=== PATIENT | female | born 2000 | race Caucasian/White ===

== ENCOUNTER 2023-08-26 12:16 | Inpatient (IN) ==
[2023-08-26] MEDS ORDERED: LIDOCAINE 1% LOCAL 20 ML VIAL INFIL PRN (13:19)
[2023-08-26] MEDS ORDERED: OXYTOCIN 30 UNITS/NSS 30 UNITS/500 ML BAG IV PRN (13:19)
--- NOTE | 2023-08-26 13:48 | History & Physical Report ---
Date of Service August 26, 2023 Assessment & Plan (1) Supervision of normal in third trimester: (2) Anemia affecting : Plan Pt is a 22 yo at 39 6/7 WGA presenting to labor and delivery for labor. External FHT and external uterine monitors used; Category I tracing; moderate FHT variability. Blood type; O+, GBS negative, rubella immune Expectant management at this time, may start oxytocin and rupture membranes later if necessary. Proceed with labor and plan for vaginal delivery. History of Present Illness Chief Complaint: Labor Primary Care Provider: JOCELYNE Echeverria Pt is a 22 y/o female currently at 39 6/7 WGA with an JOLLY of 08/27/2023 as determined by ultrasound who is here for labor. Her was complicated by anemia requiring iron infusions. + contractions; + movement; - fluid loss; - bloody show. Pt states that she came in since she started having more frequent and painful contractions starting at about 5:30 am this morning. Expecting a baby boy and excited. No questions or concerns at this time. Had regular appointments with OB. OB Labs: Blood Type O Positive 01/18/23 Antibody Screen NEGATIVE 01/18/23 Hemoglobin 11.0 g/dl (12.0-16.0) L 08/19/23 Hematocrit 33.9 % (37.0-47.0) L 08/19/23 Mean Corpuscular Volume 82.5 fL (80.0-100.0) 08/19/23 Platelet Count 239 K/uL (130-400) 08/19/23 Rubella IgG Antibody Immune (Immune) 01/18/23 Rapid Plasma Reagin Nonreactive (Nonreactive) 01/18/23 Hepatitis B Surface Antigen. NON-REACTIVE (NON-REACTIVE) 01/18/23 Hepatitis C Antibody (EIA) NON-REACTIVE (NON-REACTIVE) 01/18/23 HIV (1&2) Ag and Ab Confirmation NON-REACTIVE (NON-REACTIVE) 01/18/23 Glucose 1 Hour 50 gm Load 81 mg/dl (70-130) 06/14/23 OB Optional Labs: Chlamydia trachomatis RNA Not Detected (NotDetected) 01/18/23 Neisseria gonorrhoeae RNA Not Detected (NotDetected) 01/18/23 Thyroid Stimulating Hormone (TSH) 1.942 uIu/ml (0.300-4.500) 10/27/22 Labs Reviewed: declines genetics/horizon/qs.--akh declines msafp--smp Allergies Allergy/AdvReac Type Severity Reaction Status Date / Time No Known Drug Allergies Allergy Verified 08/25/23 11:24 Home Medications Medication Instructions Recorded Confirmed Type vits no.124-ferrous fum 1 tab PO DAILY 08/26/23 08/26/23 History 27 mg iron-folic acid 800 mcg tablet ( Vitamin) Patient History Medical History Anemia Seasonal allergies Prior miscarriage with , antepartum Missed ab Varicella vaccination Period disorder Need for prophylactic antibiotic Need for malaria prophylaxis Need for immunization against typhoid Exercise counseling Dietary counseling Counseling for travel Acne Surgical History History of tonsillectomy and adenoidectomy S/P tonsillectomy and adenoidectomy S/p bilateral myringotomy with tube placement Family History Father Irritable bowel Barretts esophagus Family/Other Muscular dystrophy cousin x2 Other Breast cancer Skin cancer Denies family history of Ovarian cancer Prostate cancer Diabetes Myocardial infarction Lung cancer Colorectal cancer Social History (Updated 01/12/23 @ 14:17 by Lety Meza) Smoking Status: Former smoker Tobacco Type: E-cigarettes / Vaping Age Started Using Tobacco: 18; Age Quit Using Tobacco: 20; Second Hand Exposure: No; Do You Dip or Chew Tobacco: No; Tobacco Cessation Education Requested by Patient: No Hx Alcohol Use: No Hx Substance Use: No Preferred Language: Portuguese Communication Ability: Effective Visual Impairment: Limited Hearing Ability: Normal V/Stol Landing Signal Officer Required: No marital status: marital status details: Wilian Urrutia (29) [phone] Current Living Situation: Spouse Current Living Situation Comment: lives with and 7 year old current occupational status: employed 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 Date GA wks Lbr Lgth wt Sex Type del Anes Place Del Prov ? Comment 01/29/22 8 Aborted-Spontaneous cytotec Review of Systems no fever, no chills and no sweats no dyspnea no difficulty breathing no chest pain and no palpitations no dysuria no headache(s) no changes in vision no breast pain Physical Exam Physical Exam: General: Alert, oriented. No acute distress. Cardiac: Regular rate and rhythm, no murmurs, gallops, or rubs. Respiratory: Clear to auscultation bilaterally a/p, no wheezes, rales, or rhonchi. No increased work of breathing. No respiratory distress. Abdomen: Gravid, Position: vertex Pelvic: Dilation 3.5 cm, Effacement 90%, Station -[address] Elizalde. Lower extremities: No lower extremity edema or swelling. No deep calf pain. Juan Ramon's negative bilaterally. Results & Data Vital Signs (Past 12 Hours) Vital Signs Temp Pulse Resp BP 08/26/23 13:00 16 08/26/23 13:00 16 08/26/23 12:39 97 H 122/72 08/26/23 12:35 36.9 C 18 Supervising Physician Co-Signing Physician Notes Resident Physician Supervision Note: I was present with Dr. Garner during the history and exam. I discussed the case with the resident and agree with the findings and plan as documented in the note. Any exceptions or clarifications are listed here: [None] Documented By: Edvin Elizalde MD, FACOG Resident Activity Tracking Resident Involvement: Resident Care Provided Care Provided: OB Delivery
[2023-08-26 14:30] LABS: Hematocrit (blood only) 35.7 % (37.0-47.0); Hemoglobin 11.5 g/dl (12.0-16.0); Mean Corpuscular Hemoglobin 26.8 pg (25.0-34.0); Mean Corpuscular Hgb Conc 32.2 g/dL (32.0-36.0); Mean Corpuscular Volume 83.2 fL (80.0-100.0); Platelet Count 246 K/uL (130-400); RDW Coefficient of Variation 18.5 % (11.5-14.5); RDW Standard Deviation 54.5 fL (36.4-46.3); Red Blood Count 4.29 M/uL (4.20-5.40); White Blood Count 9.93 K/ul (4.8-10.8)
[2023-08-26] MEDS: LACTATED RINGER'S 1,000 ML IV PRN ×2 (17:49→19:14)
[2023-08-26] MEDS ORDERED: SODIUM CHLORIDE 0.9% PF INJ 10 ML VIAL ONE (18:40)
[2023-08-26] MEDS ORDERED: ePHEDrine sulfate 50 MG/ML AMP ONE (18:40)
[2023-08-26] MEDS ORDERED: BUPIVACAINE 0.25% PF 30 ML VIAL ONE (18:40)
[2023-08-26] MEDS ORDERED: LIDOCAINE 2%/EPINEPHRINE 1:200,000 20 ML PF ONE (18:40)
[2023-08-26] MEDS ORDERED: fentANYL 2 MCG/ML BUPIVacaine 0.125%-NSS 100ML BAG ONE (18:40)
[2023-08-26] MEDS ORDERED: fentaNYL citrate PF 100 MCG/2 ML VIAL ONE (18:40)
--- NOTE | 2023-08-26 18:50 | Anesthesiology Consultation ---
Date of Service August 26, 2023 Assessment & Plan (1) Encounter for pre-operative examination: Chart Review Chart Review: Patient NOT seen in Pre Admission Testing and Acceptable Risk for Labor Epidural Consults Requested none History Height/Weight Height: 5 ft 4 in Weight: 69.4 kg Allergies Allergy/AdvReac Type Severity Reaction Status Date / Time No Known Drug Allergies Allergy Verified 08/25/23 11:24 Medications Home Medications Medication Instructions Recorded Confirmed Last Taken vits no.124-ferrous fum 1 tab PO DAILY 08/26/23 08/26/23 08/25/23 27 mg iron-folic acid 800 mcg 0800 tablet ( Vitamin) Active Medications Generic Name Dose Route Start Last Admin Trade Name Freq PRN Reason Stop Dose Admin Lactated Ringer's 1,000 mls @ 125 mls/hr 08/26/23 13:19 08/26/23 18:21 Lr IV 08/28/23 13:18 125 mls/hr .Q8H PRN Infusion L&D Protocol Protocol Past Medical History Medical History Anemia Seasonal allergies Prior miscarriage with , antepartum Missed ab Varicella vaccination Period disorder Need for prophylactic antibiotic Need for malaria prophylaxis Need for immunization against typhoid Exercise counseling Dietary counseling Counseling for travel Acne Past Family History Family History Father Irritable bowel Barretts esophagus Family/Other Muscular dystrophy cousin x2 Other Breast cancer Skin cancer Denies family history of Ovarian cancer Prostate cancer Diabetes Myocardial infarction Lung cancer Colorectal cancer Past Surgical History Surgical History History of tonsillectomy and adenoidectomy S/P tonsillectomy and adenoidectomy S/p bilateral myringotomy with tube placement Social History Smoking Status: Former smoker Do You Dip or Chew Tobacco: No Hx Alcohol Use: No Hx Substance Use: No substance use type: does not use Physical Exam Vital Signs Last Vital Signs Temp 98.2 F 08/26/23 15:30 Pulse 95 H 08/26/23 18:16 Resp 18 08/26/23 17:30 BP 139/74 08/26/23 18:16 Testing Laboratory Results 08/26/23 14:02
[2023-08-26] MEDS ORDERED: SODIUM CHLORIDE 0.9% PF INJ 10 ML VIAL EPI STA (18:51)
[2023-08-26] MEDS ORDERED: ePHEDrine sulfate 50 MG/ML AMP IV PRN (18:51)
[2023-08-26] MEDS ORDERED: BUPIVACAINE 0.25% PF 30 ML VIAL EPI PRN (18:51)
[2023-08-26] MEDS ORDERED: diphenhydrAMINE 50 MG/ML VIAL IV PRN (18:51)
[2023-08-26] MEDS ORDERED: LIDOCAINE 2%/EPINEPHRINE 1:200,000 20 ML PF EPI STA (18:51)
[2023-08-26] MEDS ORDERED: ROPIVACAINE 0.5% PF 5 MG/ML 20 ML VIAL EPI PRN (18:51)
[2023-08-26] MEDS ORDERED: LIDOCAINE 2% MPF LOCAL 5 ML VIAL EPI PRN (18:51)
[2023-08-26] MEDS ORDERED: NALOXONE HCL 0.4 MG/1 ML VIAL/CARP IV PRN (18:51)
[2023-08-26] MEDS ORDERED: fentaNYL citrate PF 100 MCG/2 ML VIAL EPI PRN (18:51)
[2023-08-26] MEDS ORDERED: NALOXONE HCL 1 MG in SODIUM CHLORIDE 0.9% 1,000 ML IV PRN (18:51)
[2023-08-26] MEDS ORDERED: fentaNYL citrate PF 100 MCG/2 ML VIAL EPI STA (18:51)
[2023-08-26] MEDS ORDERED: NALBUPHINE HCL 5 MG in SYRINGE 0 ML IV PRN (18:51)
[2023-08-26] MEDS ORDERED: SODIUM CHLORIDE 0.9% PF INJ 10 ML VIAL EPI PRN (18:51)
[2023-08-26] MEDS ORDERED: BUPIVACAINE 0.25% PF 30 ML VIAL EPI STA (18:51)
[2023-08-26] MEDS: fentANYL 2 MCG/ML BUPIVacaine 0.125%-NSS 100ML BAG EPI PRN (19:15)
--- NOTE | 2023-08-26 19:54 | Anesthesia Procedure Note ---
Date of Service August 26, 2023 Anesthesia Epidural Re-Dose Vital Signs Temp Pulse Resp BP Pulse Ox 98.1 F 97 H 18 117/73 99 08/26/23 19:21 08/26/23 19:47 08/26/23 19:45 08/26/23 19:47 08/26/23 19:47 Notes Pain Intensity: 6 Dilatation (cm): 6.0 Effacement (%): 90 Called by nursing to evaluate epidural as the patient is having increased pain. The epidural was re-dosed with the following medications (all medications via epidural route) after negative aspiration of the epidural catheter for CSF/HEME. 0.125% Bupivacaine (8ml) with 100 mcg Fentanyl After Epidural Re-Dose Mental Status: alert / awake / arousable Pain: improving with treatment Airway Patency, RR, SpO2: stable & adequate BP & HR: stable & adequate
[2023-08-26] MEDS ORDERED: NURSING L&D Epidural Breakthrough Pain Update ONE (23:09)
[2023-08-27] MEDS: fentANYL 2 MCG/ML BUPIVacaine 0.125%-NSS 100ML BAG EPI PRN (00:45)
[2023-08-27] MEDS: LACTATED RINGER'S 1,000 ML IV PRN (01:18)
--- NOTE | 2023-08-27 03:06 | Delivery Summary ---
Vaginal Delivery Summary Date of Service August 27, 2023 Vaginal Delivery Summary Patient arrived in active labor and after artificial rupture membranes progressed to 6 cm she requested epidural fluid was clear she then progressed to fully dilated and delivered a baby in occiput anterior there was a loose nuchal cord which was swept over the baby's head gentle traction the baby no excessive force easy delivery male infant infant did require some resuscitation initially but responded well to this Cord blood was sent Cord gases were sent placenta was delivered with traction IV Pitocin started uterine tone improved small bilateral labial lacerations repaired with 3-0 Vicryl bladder was drained with a red rubber catheter afterwards for 200 cc sponge instrument counts correct estimated blood loss 200 mL [facility] Vaginal Delivery Charge Delivery Type Details:
[2023-08-27 03:28] LABS: Base Excess Cord Venous Blood -5.1 mEq/L (-7.7-1.9); Cord Venous Blood HCO3 20 mmol/L (18.4-26.8); Cord Venous Blood PCO2 36 mmHg (30.4-57.2); Cord Venous Blood PO2 33 mmHg (14.1-43.3); Cord Venous Blood pH 7.35 (7.20-7.44); O2 Saturation Cord Venous Bld 66.5 % (<68)
[2023-08-27] MEDS ORDERED: HYDROCORTISONE ACETATE 25 MG SUPP PR PRN (03:32)
[2023-08-27] MEDS ORDERED: OXYTOCIN 30 UNITS/NSS 30 UNITS/500 ML BAG IV PRN (03:32)
[2023-08-27] MEDS ORDERED: DIPHTHER/TETAN/PERTUS Vaccine (Tdap, Adol/Adult) 0.5mL IM ONE (03:32)
[2023-08-27] MEDS ORDERED: BENZOCAINE 20% SPRY 85 APPLN/85 GM CAN EXT PRN (03:32)
--- NOTE | 2023-08-27 06:49 | Anesthesia Procedure Note ---
Date of Service August 27, 2023 Anesthesia Post Epidural Note Vital Signs Vital Signs: Temp Pulse Resp BP Pulse Ox O2 Del Method 98.4 F 112 H 18 108/69 98 Room Air 08/27/23 04:30 08/27/23 04:30 08/27/23 04:30 08/27/23 04:30 08/27/23 04:30 08/27/23 04:30 Pain Intensity Bilateral Lower Abdomen: Pain Intensity: 5 Notes Mental Status: alert / awake / arousable and participated in evaluation Nausea / Vomiting: adequately controlled Pain: adequately controlled Airway Patency, RR, SpO2: stable & adequate BP & HR: stable & adequate Hydration State: stable & adequate Neuraxial Anesthesia: was administered and sensory block is resolving Anesthetic Complications: no major complications apparent and Pt Satisfied with anesthetic care Epidural: Removed without complications and With tip intact
[2023-08-27] MEDS: DOCUSATE SODIUM 100 MG CAP PO SCH ×2 (08:36→21:38)
[2023-08-27] MEDS: PRENATAL VITAMIN 1 TAB PO SCH (08:36)
[2023-08-27] MEDS: IBUPROFEN 600 MG TAB PO PRN ×4 (08:37→21:38)
[2023-08-27] MEDS: ACETAMINOPHEN 325 MG TAB PO PRN ×2 (11:28→17:31)
[2023-08-28 06:32] LABS: Hematocrit (blood only) 28.9 % (37.0-47.0); Hemoglobin 9.1 g/dl (12.0-16.0); Mean Corpuscular Hemoglobin 26.8 pg (25.0-34.0); Mean Corpuscular Hgb Conc 31.5 g/dL (32.0-36.0); Mean Platelet Volume 10.1 fL (9.4-12.4); Platelet Count 177 K/uL (130-400); RDW Coefficient of Variation 19.2 % (11.5-14.5); RDW Standard Deviation 58.4 fL (36.4-46.3); White Blood Count 14.06 K/ul (4.8-10.8)
[2023-08-28] MEDS: IBUPROFEN 600 MG TAB PO PRN ×2 (07:28→16:02)
--- NOTE | 2023-08-28 07:55 | Obstetrical Progress Note ---
Date of Service August 28, 2023 Assessment & Plan (1) Supervision of normal in third trimester: PPD#1 doing well. ok. Desires DC home. Reviewed instructions. Followup 6w in office. Subjective Ambulation: ambulating normally Voiding: no voiding problems Diet Tolerance:: regular diet Lochia:: Moderate Review of Systems All systems reviewed & are unremarkable except as noted in HPI & below Physical Exam Constitutional WD/WN, vitals as above no acute distress Respiratory normal respiratory effort Cardiovascular Rate/Rhythm: regular rate and regular rhythm Gastrointestinal (Abdomen) Inspection/Auscultation: abdomen normal to inspection; abdomen not distended Percussion/Palpation: abdomen soft Genitourinary OB Exam Abdomen: + fundal height Fundus: + firm; not tender Results & Data Vital Signs (Past 12 Hours) Vital Signs Temp Pulse Resp BP O2 Del Method 08/27/23 23:40 36.6 C 80 16 96/59 L Room Air 08/27/23 20:45 36.5 C 82 16 102/66 Room Air
[2023-08-28] MEDS: PRENATAL VITAMIN 1 TAB PO SCH (08:30)
[2023-08-28] MEDS: DOCUSATE SODIUM 100 MG CAP PO SCH (08:30)
[2023-08-28] MEDS ORDERED: bisacodyL 5 MG TABEC PO SCH (20:00)
[2023-08-29] MEDS ORDERED: bisacodyL 10 MG SUPP PR PRN (03:32)
== END 2023-08-28 18:14 | disposition home or self-care (01) | DRG 807 ==
LOC: OPB 12:16 → 4S1 12:18 → 4E2 08-27 04:25

== ENCOUNTER 2024-08-01 09:52 | Inpatient (IN) ==
[2024-08-01] MEDS ORDERED: CALCIUM CARBONATE 500 MG CHEWABLE TAB PO PRN (09:57)
[2024-08-01] MEDS ORDERED: LIDOCAINE 1% LOCAL 20 ML VIAL INFIL PRN (09:57)
[2024-08-01] MEDS ORDERED: ACETAMINOPHEN 325 MG TAB PO PRN ×2 (09:57→11:52)
--- NOTE | 2024-08-01 10:17 | History & Physical Report ---
Date of Service August 01, 2024 Assessment & Plan (1) Prior miscarriage with , antepartum: Plan: IUP at 39 weeks in active labor planning to have unmedicated anticipate vaginal delivery History of Present Illness Primary Care Provider: JOCELYNE Echeverria Patient is a female EDC 08/07/24 who presents to l&D with regular ctns since 0730 this AM. contractions are now every 3 minutes and moderate. SPROM(-) GBS-negative. complicated by anemia for which received iron infusions. First baby at 5 weeks of age. Planning unmedicated . Allergies Allergy/AdvReac Type Severity Reaction Status Date / Time No Known Drug Allergies Allergy Verified 07/27/24 11:55 Home Medications Medication Instructions Recorded Confirmed Type vits no.124-ferrous fum 1 tab PO DAILY 08/26/23 07/27/24 History 27 mg iron-folic acid 800 mcg tablet ( Vitamin) multivitamin with iron 1 tab PO DAILY 01/06/24 07/27/24 History ondansetron 4 mg disintegrating 4 mg PO Q8H PRN nausea and 04/14/24 07/27/24 Rx tablet vomiting #30 tabs promethazine 12.5 mg tablet 12.5 mg PO Q6H PRN nausea and 04/23/24 07/27/24 Rx vomiting #10 tabs hydrocortisone 2.5 % topical cream 1 applic NM DAILY PRN hemorrhoids 06/29/24 07/27/24 Rx with perineal applicator #30 grams (Anusol-HC) Patient History Medical History History of chicken pox Anemia Seasonal allergies Missed ab Period disorder Need for prophylactic antibiotic Need for malaria prophylaxis Need for immunization against typhoid Exercise counseling Dietary counseling Counseling for travel Acne Surgical History S/P tonsillectomy and adenoidectomy S/p bilateral myringotomy with tube placement Family History Father Irritable bowel Barretts esophagus Family/Other Muscular dystrophy cousin x2 Other Breast cancer Skin cancer Denies family history of Ovarian cancer Prostate cancer Diabetes Myocardial infarction Lung cancer Colorectal cancer Social History Smoking Status: Never smoker Tobacco Type: E-cigarettes / Vaping Age Started Using Tobacco: 18; Age Quit Using Tobacco: 20; Second Hand Exposure: No; Do You Dip or Chew Tobacco: No; Hx Alcohol Use: No Hx Substance Use: No Preferred Language: Arabic Communication Ability: Effective Visual Impairment: Limited Hearing Ability: Normal Brazer Electronic Required: No marital status: marital status details: Wilian Urrutia (30) [phone] Current Living Situation: Spouse and Family Current Living Situation Comment: lives with spouse, step son dog, cat-spouse changing litter 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 occupational status: 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 How many Children do You have: 0 Feels Safe at Home: Yes Childhood Exposure to Second-Hand Smoke: No caffeine: Yes Dental Care, Regularly: Yes Physical Activity Frequency: 1-2 Times per Week Seatbelt Use: always Sunscreen Use: Yes Assistive Devices: None Review of Systems All systems reviewed & are unremarkable except as noted in HPI & below Physical Exam Constitutional: WD/WN, vitals as above Psychiatric: A+Ox3, euthymic affect Genitourinary: OB Exam Abdomen: + vertex, + estimated weight (6-7 pounds) and + regular contractions ([id number]) Manual OB Exam: + cervical dilation 7 cm, + cervical effacement 100% and + station -2 OB Exam Monitor Tracing: + external FHT monitor used, + external uterine monitor used, + category I and + normal FHT variability Results & Data Vital Signs (Past 12 Hours) Vital Signs Pulse BP 08/01/24 09:54 115 H 151/93 H Coding Level of Care Code 12202 INT INP/OBS CARE 1/40MIN Diagnoses Prior miscarriage with , antepartum O09.299
[2024-08-01 10:24] LABS: Hematocrit (blood only) 37.6 % (37.0-47.0); Mean Corpuscular Hemoglobin 29.9 pg (25.0-34.0); Mean Corpuscular Hgb Conc 34.6 g/dL (32.0-36.0); Mean Corpuscular Volume 86.4 fL (80.0-100.0); Mean Platelet Volume 9.2 fL (9.4-12.4); Platelet Count 277 K/uL (130-400); RDW Standard Deviation 40.9 fL (36.4-46.3); Red Blood Count 4.35 M/uL (4.20-5.40); White Blood Count 11.04 K/ul (4.8-10.8)
--- NOTE | 2024-08-01 11:02 | History & Physical Report ---
Date of Service August 01, 2024 Assessment & Plan Plan -Continue Monitor Progress Of labor. -Deep breathing advised to patient. History of Present Illness Primary Care Provider: JOCELYNE Echeverria Patient is a 23yo female A0 currently at 38+4WGA with an JOLLY 08/07/2024 as determined by US who is here for . On presentation her cervix was & cm dilated. Presence of contractions; movement present; no fluid loss; no bloody show External FHT and external uterine monitors used; category I tracing; normal FHT variability Had regular appointments with OB. Labs: Blood type: O positive Antibody screen: Negative Hgb: 13 (today) Hct: 37.6 (today) WBC: 9.33 (today) Plt: (today) Rubella: Immune(08/26/2023) VDRL/RPR: Non Reactive Gonorrhea: Negative Chlamydia: Negative HIV: Non reactive(12/30/2023) HbSAg: GBS:Negative Other screens: cff-DNA: [_] (see scanned documents) CF: [_] SMA: [_] Allergies Allergy/AdvReac Type Severity Reaction Status Date / Time No Known Drug Allergies Allergy Verified 07/27/24 11:55 Home Medications Medication Instructions Recorded Confirmed Type vits no.124-ferrous fum 1 tab PO DAILY 08/26/23 08/01/24 History 27 mg iron-folic acid 800 mcg tablet ( Vitamin) Past Med/Surg History Problem List (Updated 08/01/24 @ 10:36 by Kath Kelly, RN) Anemia affecting Prior miscarriage with , antepartum Dysuria Medical History (Updated 08/01/24 @ 10:36 by Kath Kelly, RN) History of chicken pox Anemia IRON INFUSIONS Seasonal allergies Missed ab Period disorder Need for prophylactic antibiotic Need for malaria prophylaxis Need for immunization against typhoid Exercise counseling Dietary counseling Counseling for travel Acne Surgical History S/P tonsillectomy and adenoidectomy S/p bilateral myringotomy with tube placement Family History Father Irritable bowel Barretts esophagus Family/Other Muscular dystrophy cousin x2 Other Breast cancer Skin cancer Denies family history of Ovarian cancer Prostate cancer Diabetes Myocardial infarction Lung cancer Colorectal cancer Social History Smoking Status: Never smoker Tobacco Type: E-cigarettes / Vaping Age Started Using Tobacco: 18; Age Quit Using Tobacco: 20; Second Hand Exposure: No; Do You Dip or Chew Tobacco: No; Hx Alcohol Use: No Hx Substance Use: No Preferred Language: Yi Communication Ability: Effective Visual Impairment: Limited Hearing Ability: Normal Winder Operator Required: No marital status: marital status details: Wilian Urrutia (30) [phone] Current Living Situation: Spouse and Family Current Living Situation Comment: lives with spouse, step son dog, cat-spouse changing litter 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 Denies SOB, difficulty breathing, chest pain, palpitations, and chest pressure. Denies breast pain. Denies dysuria. Denies headache or changes in vision. Physical Exam Physical Exam: General: Alert and oriented. No acute distress CV: Regular rate and rhythm. No murmurs. Respiratory: CTA bilaterally. No rhonchi, wheezes, or crackles. No increased work of breathing. Abdomen: Gravid; Soft, nontender upon palpation Uterus: Firm and Cephalic presentation Pelvic: Dilated 7cm; Effacement 100%; Station [address] Segura Lower extremities: No LE edema. No deep calf pain. Juan Ramon's negative bilaterally. Results & Data Results & Data Vital Signs (Past 12 Hours) Vital Signs Temp Pulse Resp BP 08/01/24 10:30 20 08/01/24 10:30 36.8 C 20 08/01/24 09:54 115 H 151/93 H
[2024-08-01] MEDS: OXYTOCIN 30 UNITS/NSS 30 UNITS/500 ML BAG IV PRN (11:49)
[2024-08-01] MEDS ORDERED: OXYTOCIN 30 UNITS/NSS 30 UNITS/500 ML BAG IV PRN (11:52)
[2024-08-01] MEDS ORDERED: oxyCODONE/ACETAMINOPHEN 5mg/325mg TAB PO PRN (11:52)
[2024-08-01] MEDS ORDERED: HYDROCORTISONE ACETATE 25 MG SUPP PR PRN (11:52)
[2024-08-01] MEDS ORDERED: BENZOCAINE 20% SPRY 85 APPLN/85 GM CAN EXT PRN (11:52)
[2024-08-01] MEDS ORDERED: bisacodyL 10 MG SUPP PR PRN (11:52)
[2024-08-01] MEDS: DIPHTHER/TETAN/PERTUS Vaccine (Tdap, Adol/Adult) 0.5mL IM ONE (12:27)
--- NOTE | 2024-08-01 12:38 | Delivery Summary ---
Vaginal Delivery Summary Date of Service August 01, 2024 Vaginal Delivery Summary Patient is a 23-year-old 3 para 1-0-1-0 female EDC of 08/07/2024 who presents at 39 and 1 sevenths weeks in active labor. GBS is negative. She progressed to 9 cm dilated and accepted rupture of membranes. There was a small amount of clear fluid. She had the urge to push and pushed effectively in knee- chest position over intact perineum for delivery of a viable female . Perineum was supported with . The left hand then presented and was delivered. The rest the infant then delivered easily. She was crying vigorously moving all 4 limbs. After 90 seconds, the cord was clamped and cut. Patient then was able to turn and recline on her back. After cord blood was obtained, the placenta was expressed intact with a three-vessel cord. Perineum was noted to be intact except for superficial abrasions on both labia minora. They were not bleeding and therefore not repaired. Mother and were doing well after delivery. QBL was 267 mL. [facility] Vaginal Delivery Charge Delivery Type Details: [facility]
[2024-08-01] MEDS: OXYTOCIN 30 UNITS/500ML NSS IV ONE (12:59)
[2024-08-01] MEDS: DOCUSATE SODIUM 100 MG CAP PO SCH (19:57)
[2024-08-01] MEDS: IBUPROFEN 600 MG TAB PO PRN (20:44)
[2024-08-02 06:24] VITALS: O2SAT 99
[2024-08-02 06:59] LABS: Hematocrit (blood only) 31.3 % (37.0-47.0); Hemoglobin 10.6 g/dl (12.0-16.0); Mean Corpuscular Hemoglobin 29.9 pg (25.0-34.0); Mean Corpuscular Hgb Conc 33.9 g/dL (32.0-36.0); Mean Corpuscular Volume 88.4 fL (80.0-100.0); Mean Platelet Volume 9.3 fL (9.4-12.4); Platelet Count 251 K/uL (130-400); RDW Coefficient of Variation 13.1 % (11.5-14.5); RDW Standard Deviation 42.8 fL (36.4-46.3); Red Blood Count 3.54 M/uL (4.20-5.40); White Blood Count 13.35 K/ul (4.8-10.8)
--- NOTE | 2024-08-02 07:09 | Obstetrical Progress Note ---
Date of Service August 02, 2024 Assessment & Plan (1) Prior miscarriage with , antepartum: (2) Normal spontaneous vaginal delivery: Plan Plan: Both mom and baby doing well. Discharge today as per protocol. Admission and Anticipated Discharge Date Admission Date: August 01, 2024 Supervising Physician Co-Signing Physician Notes Resident Physician Supervision Note: I interviewed and examined the patient. Discussed with Dr. Metcalf and agree with findings and plan as documented in the note. Any exceptions or clarifications are listed here: [None] Documented By: Shona Negron MD, FACOG Subjective #1PPD following for F2O9T3H) at 39 week POG. No active complains Both mom and baby doing well. Pain: Mild, intermittent Lochia: Moderate Diet: Regular OB diet Gas: Not aware of passing, but no abdominal distension Peeing: Normal, no bladder distension Ambulation: Normally Review of Systems Review of Systems: No SOB, chest pain, leg pain No dizziness, headache, palpitation No Blurring of vision , fever Physical Exam Physical Exam: General: Alert and oriented. No acute distress. CVS: S1 S2+ No murmurs, regular rhythm. Respiratory: CTA bilaterally. No rhonchi, wheezes, or crackles. No increased work of breathing. Abdomen: Bowel sound +. Soft, nontender Uterus: Fundus firm and palpable few cm below the umbilicus. Lower extremities: No LE edema. No deep calf pain. Results & Data Vital Signs (Past 12 Hours) Vital Signs Temp Pulse Resp BP Pulse Ox O2 Del Method 08/02/24 04:30 36.5 C 74 16 122/76 99 Room Air 08/02/24 00:10 36.7 C 77 18 113/71 97 Room Air 08/01/24 19:45 36.7 C 96 H 18 127/86 98 Room Air
[2024-08-02] MEDS: PRENATAL VITAMIN 1 TAB PO SCH (07:56)
[2024-08-02 08:50] VITALS: BP 110/78; PULSE 79; RESP 18; TEMP 98.1
[2024-08-02] MEDS ORDERED: bisacodyL 5 MG TABEC PO SCH (20:00)
== END 2024-08-02 14:17 | disposition home or self-care (01) | DRG 807 ==
LOC: OPB 09:52 → 4S1 09:54 → 4E2 13:58